=== PATIENT | male | born 1945 | race Caucasian/White ===

== ENCOUNTER 2017-08-16 08:21 | Inpatient (IN) | payer OTHER, MEDICARE ==
[~2017-08-16] VITALS: Ht 190.5 cm; Wt 73.2 kg
[~2017-08-16 08:21] MED LIST: ADULT LOW DOSE81 M1 PO; ASCORBIC ACID500 M3 PO; BENZONATATE100 MG PO; CALCIUM + D3 E1 EACH PO; CARTIA XT120 MG PO; COMBIVENT RESPIM4 GM IH; COMBIVENT200 INHALA IH; COREG25 M1 PO; COUMADIN2 MG PO; COZAAR100 MG PO; COZAAR50 MG PO; FLOVENT 11120 INHALA IH; FLOVENT 22120 INHALA IH; FOLIC ACID1 MG PO; HYDROCHLOROTH12.5 M3 PO; HYDROCHLOROTHIA25 MG PO; IRON SUPPLEMEN325 MG PO; LASIX40 MG PO; MULTIPLE VITAM1 EAC1 PO; PREDNISONE5 MG PO; ROSUVASTATIN CA10 MG PO; SELENIUM50 MCG PO; SINGULAIR10 MG PO; STOOL SOFTENER1 EAC2 PO; ZOCOR40 MG PO
[2017-08-16 09:07] LABS: INTER. NORMALIZED RATIO 1.3
[2017-08-16 16:22] VITALS: BP 144/65
[2017-08-16 22:27] VITALS: BP 107/69
[2017-08-17 06:40] LABS: BASOPHIL (%) 0.3 % (0-1); EOSINOPHIL (%) 1.1 % (0-5); EOSINOPHIL COUNT 0.2 K/uL (0-0.3); HEMATOCRIT 31.4 % (38.0-50.0); IMMATURE GRANULOCYTE (%) 0.6 % (0.0-0.7); LYMPHOCYTE (%) 6.6 % (15-42); MCH 33.4 PG (29.0-34.0); MCHC 33.4 G/DL (30.0-36.0); MONOCYTE (%) 6.6 % (3-12); NEUTROPHIL (%) 84.8 % (45-76); NEUTROPHIL COUNT 12.5 K/uL (1.8-6.4); RBC DIS.WIDTH-CV 12.9 % (11.8-14.6); RBC DIS.WIDTH-SD 46.5 % (39-53); RED BLOOD COUNT 3.14 M/uL (4.00-5.50); WHITE BLOOD COUNT 14.8 K/uL (4.1-10.2)
[2017-08-17 06:51] LABS: HEMOGLOBIN 10.5 G/DL (12.5-16.6)
[2017-08-17 06:52] LABS: PLATELET COUNT 131 K/uL (156-360)
[2017-08-17 07:02] LABS: CHLORIDE 96 MEQ/L (99-109); CREATININE 1.9 MG/DL (0.6-1.3); GFR ESTIMATE (CALCULATED) 37 mL/min/ (58.99-99999); GLUCOSE 180 mg/dL (70-99); INTER. NORMALIZED RATIO 1.4; SODIUM 140 MEQ/L (136-147); UREA NITROGEN (BUN) 33 mg/dL (9-23)
[2017-08-17 07:37] LABS: BASE EXCESS 5.1 mEq/L (-3 to +3); BICARBONATE 34.2 mEq/L (22-26); CARBOXY HGB 2.2 % (0-5); METHEMOGLOBIN 1.7 % (0-1.5); PCO2 78 mm Hg (35-45); PO2 97 mm Hg (80-100)
[2017-08-17 07:38] LABS: COMMENTS - BLOOD GASES NAC+; DEVICE HFNC; O2 FLOW 9 L/MIN; SITE LB; TOTAL RESP RATE 18 resp/min; pH 7.25 (7.35-7.45)
== END 2017-08-17 08:24 | DRG 200 ==
LOC: OPR 08:21 → EDSTATUS 09:00 → OPR 09:00 → 2SOUTH 12:25 → 4WEST 12:25 → ENRESERV 12:28 → 5EAST 16:11 → ENRESERV 08-17 07:48 → 4WEST 08-17 07:49
PROVIDERS: Hospitalist; Internal Medicine; Nurse Practitioner Adult Health
PROC: 0W9B30Z Drainage of Left Pleural Cavity with Drainage Device, Percutaneous Approach (ICD-10-PCS; principal; 2017-08-16)
PROC: 0BBJ3ZX Excision of Left Lower Lung Lobe, Percutaneous Approach, Diagnostic (ICD-10-PCS; principal; 2017-08-16)
PROC: 0W2BX0Z Change Drainage Device in Left Pleural Cavity, External Approach (ICD-10-PCS; 2017-08-17)
PROC: 5A12012 Performance of Cardiac Output, Single, Manual (ICD-10-PCS; 2017-08-17)
PROC: 0BH17EZ Insertion of Endotracheal Airway into Trachea, Via Natural or Artificial Opening (ICD-10-PCS; 2017-08-17)
DX: J95.811 Postprocedural pneumothorax (principal); I97.121 Postprocedural cardiac arrest following other surgery; J94.2 Hemothorax; J95.830 Postprocedural hemorrhage of a respiratory system organ or structure following a respiratory system procedure; Y83.8 Other surgical procedures as the cause of abnormal reaction of the patient, or of later complication, without mention of misadventure at the time of the procedure; R06.03 Acute respiratory distress; R91.8 Other nonspecific abnormal finding of lung field; J44.9 Chronic obstructive pulmonary disease, unspecified; J96.11 Chronic respiratory failure with hypoxia; Z99.81 Dependence on supplemental oxygen; I38 Endocarditis, valve unspecified; I48.91 Unspecified atrial fibrillation; I25.10 Atherosclerotic heart disease of native coronary artery without angina pectoris; I10 Essential (primary) hypertension; E78.5 Hyperlipidemia, unspecified; Z95.2 Presence of prosthetic heart valve; Z79.01 Long term (current) use of anticoagulants; Z95.1 Presence of aortocoronary bypass graft; Z87.891 Personal history of nicotine dependence; Z82.49 Family history of ischemic heart disease and other diseases of the circulatory system
CPT/HCPCS: 36415; 36600; 49405; 71046; 77012; 80048; 82803; 82948; 83605; 84484; 85025; 85610; 85730; 87641; 92950; 94010; 94640; 94640 76; 94799; 99202; C1729; C1769; J1650; J2250; J2405; J2704; J3010